=== PATIENT | female | born 1955 | race Caucasian/White ===

== ENCOUNTER → 2017-08-18 | Outpatient (CLI) | payer OTHER | LOC: BRMIMAGING 13:30 | PROVIDERS: ATTEND Obstetrics & Gynecology | DX: Z12.31 Encounter for screening mammogram for malignant neoplasm of breast (principal) | CPT/HCPCS: G0202 ==

== ENCOUNTER → 2018-09-13 | Outpatient (CLI) | payer OTHER | LOC: BRMIMAGING 11:25 | DX: Z12.31 Encounter for screening mammogram for malignant neoplasm of breast (principal) ==